=== PATIENT | male | born 1955 | race Caucasian/White ===

== ENCOUNTER 2023-05-03 11:14 | Inpatient (IN) | payer OTHER ==
[2023-05-03 11:49] VITALS: BMI 21.8
[2023-05-03] MEDS ORDERED: IBUPROFEN 400 MG TABLET (FP) PO PRN (15:03)
[2023-05-03] MEDS ORDERED: BENZOCAINE/MENTHOL (CHLORASEPTIC ) LOZENGE MM PRN (15:03)
[2023-05-03] MEDS ORDERED: ACETAMINOPHEN 325 MG TABLET (FP) PO PRN (15:03)
[2023-05-03] MEDS ORDERED: BENZONATATE 200 MG CAPSULE PO PRN (15:03)
[2023-05-03] MEDS ORDERED: LOPERAMIDE HCL 2 MG CAPSULE PO PRN (15:03)
[2023-05-03] MEDS ORDERED: IBUPROFEN 600 MG TABLET (FP) PO PRN (15:03)
[2023-05-03] MEDS ORDERED: NALOXONE HCL (KLOXXADO) 8 MG SPRAY NS PRN (15:03)
[2023-05-03] MEDS ORDERED: NICOTINE POLACRILEX 2 MG GUM BUC PRN (15:03)
[2023-05-03] MEDS ORDERED: MAG HYDROX/AL HYDROX/SIMETH 30 ML UNIT-DOSE CUP PO PRN (15:03)
[2023-05-03] MEDS ORDERED: hydrOXYzine PAMOATE 25 MG CAPSULE (FP) PO PRN (15:03)
[2023-05-03] MEDS ORDERED: NALOXONE HCL 0.4 MG/ML VIAL IM PRN (15:03)
[2023-05-03] MEDS ORDERED: guaiFENesin 600 MG TABLET.ER (FP) PO PRN (15:03)
[2023-05-03] MEDS ORDERED: POLYETHYLENE GLYCOL (HEALTHYLAX) 3350 17 GM PACKET PO PRN (15:03)
[2023-05-03] MEDS ORDERED: MAGNESIUM HYDROX 2400MG/30ML ORAL SUSPENSION 30 ML CUP PO PRN (15:03)
[2023-05-03] MEDS: INSULIN ASPART SLIDING SCALE (NOVOLOG) 1 VIAL SQ SCH (19:09)
[2023-05-03] MEDS: TUBERCULIN PPD 5 TU/0.1ML SYRINGE (IN PATIENT USE ONLY) ID ONE (19:21)
[2023-05-03] MEDS: MELATONIN 5 MG TABLETS PO SCH (22:50)
[2023-05-03] MEDS: THIAMINE HCL 100 MG TABLET (FP) PO SCH (22:55)
[2023-05-04] MEDS: PRENATAL VITAMINS W/ FOLIC ACID TABLET (FP) PO SCH (09:59)
[2023-05-04] MEDS: NICOTINE 14 MG/24 HOURS TOPICAL PATCH TD SCH (09:59)
[2023-05-04] MEDS ORDERED: ESCITALOPRAM OXALATE 10 MG TABLET ONE (12:55)
[2023-05-04 12:56] LABS: HEMATOCRIT 34.9 % (35.4-49); HEMOGLOBIN 11.8 GM/dL (11.7-16.9); MCH 32.7 pg (25.7-33.7); MCHC 33.9 g/dl (32.0-35.9); MEAN CELL VOLUME 96.4 fl (80-96); MEAN PLT VOLUME 9.6 fl (7.5-11.1); PLATELET COUNT 160 10^3/uL (134-434); RBC 3.62 M/mm3 (4.00-5.60); RDW 14.6 % (11.9-15.9); WHITE BLOOD COUNT 6.2 K/mm3 (4.0-10.0)
[2023-05-04 13:10] LABS: CHLORIDE 107 mmol/L (98-107); POTASSIUM 4.4 mmol/L (3.5-5.1); SODIUM 141 mmol/L (136-145)
[2023-05-04] MEDS: ESCITALOPRAM OXALATE 20 MG TABLET PO SCH (13:26)
[2023-05-04] MEDS: ARIPiprazole 2 MG TABLET PO SCH (13:26)
[2023-05-04 13:27] LABS: CALCIUM 8.7 mg/dL (8.5-10.1)
[2023-05-04 13:28] LABS: ALBUMIN 3.6 g/dl (3.4-5.0); ANION GAP 5 mmol/L (4-13); BLOOD UREA NITROGEN 25.7 mg/dL (7-18); CO2 29 mmol/L (21-32); SGOT/AST 21 U/L (15-37)
[2023-05-04 13:29] LABS: SGPT/ALT 20 U/L (13-61)
[2023-05-04 13:30] LABS: BILIRUBIN,TOTAL 0.4 mg/dL (0.2-1)
[2023-05-04 13:31] LABS: ALK PHOS 101 U/L (45-117); CREATININE 1.7 mg/dL (0.55-1.3)
[2023-05-04 13:45] LABS: GLUCOSE,RANDOM 48 mg/dL (74-106)
[2023-05-04] MEDS: traZODone HCL 50 MG TABLET (FP) PO SCH (21:29)
[2023-05-05] MEDS: ASPIRIN 81 MG CHEWABLE TABLETS PO SCH (13:22)
[2023-05-05] MEDS: metFORMIN HCL 500 MG TABLET (FP) PO SCH (13:23)
[2023-05-05] MEDS: AMMONIUM LACTATE 12% LOTION 225 GM BOTTLE TP SCH (13:23)
[2023-05-05 16:12] LABS: PH,URINE 5.5 (5.0-8.0); URINE APPEARANCE CLEAR; URINE BILIRUBIN NEGATIVE (NEGATIVE); URINE COLOR YELLOW; URINE GLUCOSE (UA) NEGATIVE (NEGATIVE); URINE KETONE NEGATIVE (NEGATIVE); URINE LEUK ESTERASE NEGATIVE (NEGATIVE); URINE NITRITE NEGATIVE (NEGATIVE); URINE PROTEIN NEGATIVE (NEGATIVE); URINE UROBILINOGEN 0.2 mg/dL (0.2-1.0)
[2023-05-06] MEDS ORDERED: ESCITALOPRAM OXALATE 10 MG TABLET ONE (08:28)
[2023-05-07] MEDS ORDERED: ESCITALOPRAM OXALATE 10 MG TABLET ONE (08:29)
[2023-05-08] MEDS ORDERED: ESCITALOPRAM OXALATE 10 MG TABLET ONE (08:18)
[2023-05-10] MEDS ORDERED: ESCITALOPRAM OXALATE 10 MG TABLET ONE (08:33)
[2023-05-10] MEDS: ARIPIPRAZOLE (ABILIFY MAINTENA) 400 MG VIAL IM SCH (11:16)
[2023-05-11] MEDS ORDERED: ESCITALOPRAM OXALATE 10 MG TABLET ONE (08:55)
[2023-05-12] MEDS ORDERED: ESCITALOPRAM OXALATE 10 MG TABLET ONE (08:40)
[2023-05-13] MEDS ORDERED: ESCITALOPRAM OXALATE 10 MG TABLET ONE (08:35)
[2023-05-13] MEDS ORDERED: ARIPIPRAZOLE (ABILIFY MAINTENA) 400 MG VIAL IM ONE (10:00)
[2023-05-14] MEDS ORDERED: ESCITALOPRAM OXALATE 10 MG TABLET ONE (08:23)
[2023-05-15] MEDS ORDERED: ESCITALOPRAM OXALATE 10 MG TABLET ONE (08:59)
[2023-05-16] MEDS ORDERED: ESCITALOPRAM OXALATE 10 MG TABLET ONE (08:24)
[2023-05-17 06:54] VITALS: TEMP 97.3
[2023-05-17 09:05] VITALS: BP 117/63; PULSE 86; RESP 16
== END 2023-05-17 10:10 | disposition home or self-care (01) | DRG 895 ==
LOC: YASAS 11:14 → Y3W 17:25
PROVIDERS: ADMIT Allergy & Immunology; ATTEND Psychiatry & Neurology Pain Medicine
PROC: HZ42ZZZ Group Counseling for Substance Abuse Treatment, Cognitive-Behavioral (ICD-10-PCS; principal; 2023-05-03)
DX: F14.20 Cocaine dependence, uncomplicated (principal); F20.0 Paranoid schizophrenia; F31.9 Bipolar disorder, unspecified; F41.9 Anxiety disorder, unspecified; I10 Essential (primary) hypertension; E78.5 Hyperlipidemia, unspecified; E11.9 Type 2 diabetes mellitus without complications; Z79.84 Long term (current) use of oral hypoglycemic drugs; Z88.0 Allergy status to penicillin
CPT/HCPCS: 36415; 80053; 80305; 80307; 81003; 82962; 85027; 86780; 87635; 87811; 93005; 93010